=== PATIENT | female | born 1940 | race Caucasian/White ===

== ENCOUNTER 2019-03-21 23:34 | Emergency (ER) | payer OTHER ==
[~2019-03-21] VITALS: Ht 157.5 cm; Wt 60.8 kg
[~2019-03-21 23:34] MED LIST: ALFALFA250 MG; BRAIN MIGHT-DH1 EACH; Cardizem CD 24240 MG; FISH OIL 1,0001 EAC1; FOLGARD TABLET1 EACH; HYDSUL200
[2019-03-22 00:11] LABS: BASOPHILS ABSOLUTE AUTO 0.03 K/mm3 (0.00-0.23); BASOPHILS PERCENT AUTO 0 % (0-2); EOSINOPHILS ABSOLUTE AUTO 0.13 K/mm3 (0.00-0.68); EOSINOPHILS PERCENT AUTO 1 % (0-6); Hematocrit 44.9 % (33.0-51.0); Hemoglobin 14.4 g/dL (11.5-16.0); IMMATURE GRAN ABSOLUTE AUTO 0.02 K/mm3 (0.00-0.10); IMMATURE GRAN PERCENT AUTO 0 % (0-1); LYMPHOCYTES ABSOLUTE AUTO 2.44 K/mm3 (0.84-5.20); LYMPHOCYTES PERCENT AUTO 24 % (21-46); MONOCYTES PERCENT AUTO 8 % (4-13); Mean Corpuscular HGB 28.6 pg (26.0-34.0); Mean Corpuscular HGB Conc 32.1 g/dL (31.5-36.5); Mean Corpuscular Volume 89 fL (80-100); Mean Platelet Volume 9.4 fL (9.1-12.4); NEUTROPHILS ABSOLUTE AUTO 6.58 K/mm3 (1.96-9.15); NEUTROPHILS PERCENT AUTO 66 % (41-73); Platelet Count 284 K/mm3 (150-400); RDW Coefficient Variation 14.5 % (11.7-14.2); RDW Standard Deviation 46.9 fL (35.1-46.3); Red Blood Cell Count 5.04 M/mm3 (3.80-5.20)
[2019-03-22 00:43] LABS: Anion Gap 8 mmol/L (6-16); Blood Urea Nitrogen 27 mg/dL (8-24); Bun/Creatinine Ratio 43.4 (12.0-20.0); CO2, Blood 25 mmol/L (21-32); Calcium, Blood 8.5 mg/dL (8.5-10.1); Chloride, Blood 109 mmol/L (98-108); Creatinine, Blood 0.62 mg/dL (0.40-1.00); Glomerular Filtration Rate >60 (60-); Glucose, Blood 189 mg/dL (70-99); Potassium, Blood 3.7 mmol/L (3.5-5.5); Sodium, Blood 142 mmol/L (136-145); Troponin I <0.015 ng/mL (0.000-0.040)
== END 2019-03-22 03:32 | disposition short-term general hospital (02) ==
LOC: ER 23:34
PROVIDERS: Physician Assistant
DX: R07.89 Other chest pain (principal); R61 Generalized hyperhidrosis; R11.2 Nausea with vomiting, unspecified; Z79.899 Other long term (current) drug therapy; I10 Essential (primary) hypertension
CPT/HCPCS: 36415; 71046; 71260; 80048; 83036; 83880; 84484; 85025; 85379; 93005; 93010; 96374-59; 99285-25; J2405; Q9967